=== PATIENT | female | born 1980 | race Native Hawaiian/Other Pacific Islander ===

== ENCOUNTER 2020-03-10 18:22 | Observation (INO) | payer OTHER ==
[~2020-03-10] VITALS: Ht 154.9 cm; Wt 144.4 kg
[2020-03-10 18:40] VITALS: BP 131/77; TEMP 97.7
[2020-03-10 20:00] VITALS: BP 131/77
[2020-03-10 20:10] LABS: PLATELET COUNT 263 K/uL (152-353)
[2020-03-10 20:14] LABS: POTASSIUM 3.9 mmol/L (3.6-5.2)
[2020-03-10 21:00] VITALS: BP 143/81
[2020-03-10 22:00] VITALS: BP 130/80
[2020-03-10 23:15] VITALS: BP 153/75
[2020-03-11] VITALS (15 sets, daily range): BP systolic 128–161; BP diastolic 54–87; TEMP 97.6–98.3; Ht 154.9 cm; Wt 144.4 kg
[2020-03-11] MEDS ORDERED: GLIM4TAB PO (17:51)
[2020-03-11] MEDS ORDERED: OZEMPIC2 MG/1.51 SC (17:52)
[2020-03-11] MEDS ORDERED: METF500T PO (17:53)
[2020-03-12] VITALS: BP 154/77; TEMP 97.4
[2020-03-12 04:00] VITALS: BP 150/85; TEMP 98.6
[2020-03-12 05:18] LABS: PLATELET COUNT 232 K/uL (152-353)
[2020-03-12 05:39] LABS: POTASSIUM 4.5 mmol/L (3.6-5.2)
[2020-03-12 08:00] VITALS: BP 141/67; TEMP 97.3
== END 2020-03-12 11:30 | disposition home or self-care (01) ==
LOC: ED 18:22 → ICU 22:32 → PCU 03-11 07:47 → ICU 03-11 07:49 → MED/SURG 03-11 21:55
PROVIDERS: Family Medicine; ADMIT Internal Medicine Endocrinology, Diabetes & Metabolism
DX: U07.1 COVID-19 (principal); J96.01 Acute respiratory failure with hypoxia; E11.9 Type 2 diabetes mellitus without complications; K76.0 Fatty (change of) liver, not elsewhere classified; E66.01 Morbid (severe) obesity due to excess calories
CPT/HCPCS: 36415; 36600; 80053; 81000; 82805; 82947; 85027; 94760; 96365; 96375; 99220; 99284; G0378; J0696; J1100; J1650; J1815; J3490